=== PATIENT | female | born 1980 | race Caucasian/White ===

== ENCOUNTER 2019-07-03 07:41 | Outpatient (CLI) | payer BC ==
--- NOTE | 2019-07-03 09:08 | CT ---
EXAM: CT ABDOMEN AND PELVIS HISTORY: Amenorrhea COMPARISON: None. Procedure: Multiple contiguous axial images were obtained and a CT of the abdomen and pelvis with IV contrast. C oronal reformats were performed. FINDINGS: Lower Chest: within normal limits. Vessels: Normal caliber aorta Heart: Normal heart size Abdomen: Portal vein:Patent Gallbladder: Possible 0.[address] evidence of cholecystitis Liver: within normal limits. Pancreas: within normal limits. Spleen: within normal limits. Adrenals: within normal limits. Kidneys: Symmetric enhancement. No obstructive uropathy. Peritoneum: No ascites or free air, no fluid collection. Bowel: Limited evaluation due to the lack of oral contrast administration. No evidence of bowel obstr uction. Ileocecal junction is unremarkable. Normal caliber appendix. Scattered fecal material in a nondistended, nondilated colon. There is evidence of previous bariatric surgery. Mesentery and Retroperitoneum: There are mildly enlarged mesenteric lymph nodes. [facility] [facility] ged left lower quadrant lymph node measures 0.9 x 0.6 cm. 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 There are adjacent venous collaterals. Abdominal Wall: within normal limits. Pelvis: Reproductive Organs: Reproductive organs are unremarkable. No obvious abnormalities in the left or ri ght adnexa. Pelvis: No mass, lymphadenopathy, free air or free fluid. Bladder: within normal limits. Bones: within normal limits. IMPRESSION: 1. Mildly enlarged mesenteric lymph nodes, scattered throughout the mesentery. Correlate for mesenter ic lymphadenitis. 2. Bilaterally no obstructive uropathy. 3. CT evidence of cholelithiasis without evidence of cholecystitis. 4. 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 There are adjacent venous collateral suggesting a long-standing process. Correlate clinically.
== END 2019-07-03 07:42 | disposition home or self-care (01) ==
LOC: BICCT 07:41
PROVIDERS: ATTEND Internal Medicine Endocrinology, Diabetes & Metabolism
DX: E28.8 Other ovarian dysfunction (principal); E28.1 Androgen excess; K80.20 Calculus of gallbladder without cholecystitis without obstruction; R59.0 Localized enlarged lymph nodes; I87.8 Other specified disorders of veins
CPT/HCPCS: 74177